=== PATIENT | female | born 1995 | race Caucasian/White ===

== ENCOUNTER 2018-06-16 19:13 | Emergency (ER) | payer OTHER, BC ==
[~2018-06-16] VITALS: Ht 157.5 cm; Wt 120.2 kg
[2018-06-16] MEDS ORDERED: IV NORMAL SALINE 1000ML BAG 1,000 ML IV ONE (19:45)
--- NOTE | 2018-06-16 19:52 | EKG ---
[facility] [address] [place] [address] Test Date: 2018-06-16 Test Time: 19:50:31 Pat Name: BELGICA LIGHT Department: Room: Gender: F Consulting Networking Engineer: NIURKA : 1995 Requested By: CHRIS VARGAS Order Number: [id number] Reading MD: Fede Agrawal MD Measurements Intervals [place] Rate: 84 P: 35 SC: 164 QRS: 44 QRSD: 76 T: 23 QT: 338 QTc: 402 Interpretive Statements SINUS RHYTHM Electronically Signed On 06-21-2018 11:02:45 ZIPPER SETTER by Fede Agrawal MD
--- NOTE | 2018-06-16 19:57 | PHYS DOC ---
Adult General Chief Complaint Chief Complaint: DIZZY/LIGHT HEADED HPI HPI Patient is a 22 year old female who presents with is with her fourth and she has had 3 miscarriages in the past with the last miscarriage being in May. Patient is actually already seen her OB doctor Dr. Putnam and is actually scheduled for a ultrasound tomorrow. Patient states that she noticed the last couple days that she will get dizzy especially when standing up or she moves her head back and forth quickly. Patient denies ever losing consciousness. She states she does have morning sickness but has been keeping down food and is eating and drinking okay. Patient states she last ate at 1530 today and this drinks 3-4 bottles of water. Patient states she had a slight headache earlier but that has gone away. Patient also states that today she wiped after urinating and there was pink on the told paper. Patient denies any pain with urination. Patient denies any vaginal bleeding or abnormal vaginal discharge. She is alert and oriented. Patient has a history of 3 miscarriages, ectopic pregnancies. She has no known drug allergies and she is on progesterone. Her last underwent , 98 heart rate, 100% on room air, 18 respirations. Patient states that 1600 today she became shaky and feeling some dizziness. She walks with steady gait. Review of Systems Review of Systems Constitutional: Denies fever or chills [] Eyes: Denies change in visual acuity, redness, or eye pain [] HENT: Denies nasal congestion or sore throat [] Respiratory: Denies cough or shortness of breath [] Cardiovascular: No additional information not addressed in HPI [] GI: Denies abdominal pain, nausea, vomiting, bloody stools or diarrhea [] : Denies dysuria or hematuria [] Musculoskeletal: Denies back pain or joint pain [] Integument: Denies rash or skin lesions [] Neurologic: Denies headache, focal weakness or sensory changes. Dizziness[] All other systems were reviewed and found to be within normal limits, except as documented in this note. Current Medications Current Medications Current Medications Medications (Trade) Dose Ordered Sig/Dyan Start Time Stop Time Status Last Admin Dose Admin Sodium Chloride 1,000 ml @ 1,000 mls/hr 1X ONCE 06/16/18 19:45 06/16/18 20:44 DC 06/16/18 20:05 1,000 MLS/HR Allergies Allergies Allergies Coded Allergies Type Severity Reaction Last Updated Verified No Known Drug Allergies 06/16/18 No Physical Exam Physical Exam Constitutional: Well developed, well nourished, no acute distress, non-toxic appearance. [] HENT: Normocephalic, atraumatic, bilateral external ears normal, oropharynx moist, no oral exudates, nose normal. [] Eyes: PERRLA, EOMI, conjunctiva normal, no discharge. [] Neck: Normal range of motion, no tenderness, supple, no stridor. [] Cardiovascular:Heart rate regular rhythm, no murmur [] Lungs & Thorax: Bilateral breath sounds clear to auscultation [] Abdomen: Bowel sounds normal, soft, no tenderness, no masses, no pulsatile masses. [] Skin: Warm, dry, no erythema, no rash. [] Back: No tenderness, no CVA tenderness. [] Extremities: No tenderness, no cyanosis, no clubbing, ROM intact, no edema. [] Neurologic: Alert and oriented X 3, normal motor function, normal sensory function, no focal deficits noted. Dizziness when getting up fast or moving head fast side to side. Psychologic: Affect normal, judgement normal, mood normal. [] Current Patient Data Vital Signs Vital Signs Date Time Temp Pulse Resp B/P (MAP) Pulse Ox O2 Delivery O2 Flow Rate FiO2 06/16/18 20:53 79 16 99 06/16/18 19:20 98.2 120/72 (88) Room Air 98.2 Lab Values Laboratory Tests Test 06/16/18 19:35 06/16/18 19:40 06/16/18 19:44 Urine Collection Type Unknown Urine Color Yellow Urine Clarity Clear Urine pH 6.0 Urine Specific [place] 1.025 Urine Protein Negative mg/dL (NEG-TRACE) Urine Glucose (UA) Negative mg/dL (NEG) Urine Ketones (Stick) Negative mg/dL (NEG) Urine Blood Negative (NEG) Urine Nitrite Negative (NEG) Urine Bilirubin Negative (NEG) Urine Urobilinogen Dipstick 0.2 mg/dL (0.2 mg/dL) Urine Leukocyte Esterase Negative (NEG) Urine RBC 0 /HPF (0-2) Urine WBC 1-4 /HPF (0-4) Urine Squamous Epithelial Cells Mod /LPF Urine Bacteria Moderate /HPF (0-FEW) Urine Mucus Marked /LPF Glucose (Fingerstick) 82 mg/dL (70-99) White Blood Count 16.7 x10^3/uL (4.0-11.0) H Red Blood Count 4.25 x10^6/uL (3.50-5.40) Hemoglobin 12.7 g/dL (12.0-15.5) Hematocrit 37.0 % (36.0-47.0) Mean Corpuscular Volume 87 fL (79-100) Mean Corpuscular Hemoglobin 30 pg (25-35) Mean Corpuscular Hemoglobin Concent 34 g/dL (31-37) Red Cell Distribution Width 13.3 % (11.5-14.5) Platelet Count 416 x10^3/uL (140-400) H Neutrophils (%) (Auto) 71 % (31-73) Lymphocytes (%) (Auto) 21 % (24-48) L Monocytes (%) (Auto) 7 % (0-9) Eosinophils (%) (Auto) 1 % (0-3) Basophils (%) (Auto) 1 % (0-3) Neutrophils # (Auto) 11.8 x10^3uL (1.8-7.7) H Lymphocytes # (Auto) 3.5 x10^3/uL (1.0-4.8) Monocytes # (Auto) 1.1 x10^3/uL (0.0-1.1) Eosinophils # (Auto) 0.2 x10^3/uL (0.0-0.7) Basophils # (Auto) 0.2 x10^3/uL (0.0-0.2) Sodium Level 140 mmol/L (136-145) Potassium Level 3.8 mmol/L (3.5-5.1) Chloride Level 102 mmol/L (98-107) Carbon Dioxide Level 26 mmol/L (21-32) Anion Gap 12 (6-14) Blood Urea Nitrogen 12 mg/dL (7-20) Creatinine 0.7 mg/dL (0.6-1.0) Estimated GFR (Cockcroft-Gault) 102.8 Glucose Level 82 mg/dL (70-99) Calcium Level 9.9 mg/dL (8.5-10.1) Laboratory Tests 06/16/18 19:44 Laboratory Tests 06/16/18 19:44 EKG EKG Sinus rhythm and no STEMI Interpretation Time: [address] Nichols Radiology/Procedures Radiology/Procedures [] Course & Med Decision Making Course & Med Decision Making Patient is a 22 year old female who presents with is with her fourth and she has had 3 miscarriages in the past with the last miscarriage being in May. Patient is actually already seen her OB doctor Dr. Putnam and is actually scheduled for a ultrasound tomorrow. Patient states that she noticed the last couple days that she will get dizzy especially when standing up or she moves her head back and forth quickly. Patient denies ever losing consciousness. She states she does have morning sickness but has been keeping down food and is eating and drinking okay. Patient states she last ate at 1530 today and this drinks 3-4 bottles of water. Patient states she had a slight headache earlier but that has gone away. Patient also states that today she wiped after urinating and there was pink on the told paper. Patient denies any pain with urination. Patient denies any vaginal bleeding or abnormal vaginal discharge. She is alert and oriented. Patient has a history of 3 miscarriages, ectopic pregnancies. She has no known drug allergies and she is on progesterone. Her vital signs are 120/72, 98 heart rate, 100% on room air, 18 respirations. Patient states that 1600 today she became shaky and feeling some dizziness. She walks with steady gait. Heart regular no murmur. Lungs are clear to auscultation lobes. PERRLA. When I have the patient turn her head some side- to-side she states she gets dizzy. Patient does not have any visual changes. She is not currently having any abdominal pain, nausea, chest pain, shortness of air. She has no extremity edema. She is neurologically intact. Patient denies any pain at this time. Afebrile. She is stable and in no distress. EKG states sinus rhythm and no STEMI. Orthostatics were layin/61, 98 heart rate, sittin heart rate, 113/56, standin heart rate, 116/72. Glucose is 82. Patient's urine has bacteria and so she will be treated for a urinary tract infection. Patient's urinalysis shows that she is slightly dehydrated. Patient is told that she needs to make sure she drinks more fluid. Patient is told to also rise slowly. Blood work is unremarkable. Patient is given prescription for Macrobid. Patient is stable and in no distress. She is to call her OB doctor tomorrow so she can have a follow-up appointment. [] Miguel A Disclaimer Dragon Disclaimer This electronic medical record was generated, in whole or in part, using a voice recognition dictation system. Departure Departure Impression: Primary Impression: Dizziness, nonspecific Additional Impression: UTI (urinary tract infection) in in first trimester Disposition: HOME, SELF-CARE Condition: STABLE Referrals: UNKNOWN PCP NAME (PCP) Patient Instructions: - Urinary Tract Infection Additional Instructions: Drink more fluids. Rise from a laying or sitting position very slowly. Call your doctor tomorrow for a follow-up appointment. If you lose consciousness or began vomiting and had an intense headache return to the ED. Take Tylenol as needed take medications as prescribed. Scripts Nitrofurantoin Monohyd/M-Cryst (MACROBID 100 MG CAPSULE) 100 Mg Capsule 1 CAP PO BID, #14 CAP Prov: CHRIS VARGAS APRN 06/16/18 Problem Qualifiers CHRIS VARGAS APRN Jun 16, 2018 19:57
[2018-06-16 20:00] LABS: BASO # 0.2 x10^3/uL (0.0-0.2); BASO % 1 % (0-3); EOS # 0.2 x10^3/uL (0.0-0.7); EOS % 1 % (0-3); HEMOGLOBIN 12.7 g/dL (12.0-15.5); LYMPH # 3.5 x10^3/uL (1.0-4.8); LYMPH % 21 % (24-48); MEAN CORPUSCULAR HEMOGLOBIN 30 pg (25-35); MEAN CORPUSCULAR HGB CONC 34 g/dL (31-37); MEAN CORPUSCULAR VOLUME 87 fL (79-100); MONO # 1.1 x10^3/uL (0.0-1.1); MONO % 7 % (0-9); NEUT # 11.8 x10^3uL (1.8-7.7); NEUT % 71 % (31-73); PLATELET COUNT 416 x10^3/uL (140-400); RED BLOOD COUNT 4.25 x10^6/uL (3.50-5.40); RED CELL DISTRIBUTION WIDTH 13.3 % (11.5-14.5); WHITE BLOOD COUNT 16.7 x10^3/uL (4.0-11.0)
[2018-06-16 20:01] LABS: BILIRUBIN,URINE NEGATIVE (NEG); CLARITY,URINE CLEAR; COLOR,URINE YELLOW; NITRITE,URINE NEGATIVE (NEG); PROTEIN,URINE NEGATIVE (NEG-TRACE); UROBILINOGEN,URINE 0.2 mg/dL (0.2 mg/dL)
[2018-06-16 20:08] LABS: BACTERIA,URINE MODERATE /HPF (0-FEW); RBC,URINE 0 /HPF (0-2); SQUAMOUS EPITHELIAL CELL,UR MOD /LPF
[2018-06-16 20:09] LABS: CALCIUM 9.9 mg/dL (8.5-10.1); CREATININE 0.7 mg/dL (0.6-1.0); GFR 102.8; POTASSIUM 3.8 mmol/L (3.5-5.1)
[2018-06-16 20:53] VITALS: BP 118/75
[2018-06-16] MEDS ORDERED: NITR100C62 PO (20:59)
== END 2018-06-16 21:18 | disposition home or self-care (01) ==
LOC: ER 19:13
DX: O23.41 Unspecified infection of urinary tract in pregnancy, first trimester (principal); E86.0 Dehydration; R42 Dizziness and giddiness; Z3A.01 Less than 8 weeks gestation of pregnancy
CPT/HCPCS: 36415; 80048; 81001; 82962; 85025; 87086; 93005; 96360; 99285; J7030

== ENCOUNTER → 2021-12-31 | Outpatient (CLI) | payer OTHER ==
[~2021-12-31] MED LIST: ACET500T68 PO; FAMO-63 PO; HYDR-2761 PO; NITR100C62 PO; PNV1TABL25 PO
== END ==
LOC: LAB 08:33
PROVIDERS: ATTEND Surgery
DX: Z01.812 Encounter for preprocedural laboratory examination (principal); Z20.822 Contact with and (suspected) exposure to COVID-19
CPT/HCPCS: U0003

== ENCOUNTER 2022-01-01 07:44 | Day surgery (SDC) | payer OTHER ==
[~2022-01-01] VITALS: Ht 157.5 cm; Wt 116.5 kg
[~2022-01-01 07:44] MED LIST changes: +BUPIVACAINE-EPI 0.5% 30 ML VIAL KIT. ONE; +DEXAMETHASONE SOD PHOS 4 MG/ML VIAL ONE; +GLYCOPYRROLATE 1 MG/5 ML VIAL. ONE; -HYDR-2761 PO; +HYDROmorphone 2 MG/ML INJ. IVP PRN; +IOHEXOL 300 MG/ML 50 ML VIAL. ONE; +IV RINGERS,LACTATED 1000ML 1,000 ML IV SCH; +LIDOCAINE 1% PF 5 ML VIAL. ONE; +MORPHINE SULFATE 2 MG/ML INJ. IVP PRN; +NEOSTIGMINE METHYLSULFATE 5 MG/5 ML SYRINGE. ONE; +ONDANSETRON PF 4 MG/2 ML VIAL. ONE; +PROCHLORPERAZINE 10 MG/2 ML VIAL. IVP PRN; +PROPOFOL 10 MG/ML (20ML) VIAL. IV ONE; +ROCURONIUM 50 MG/5 ML VIAL. ONE; +SURGICEL HEMOSTAT 4X8 EACH. ONE; +fentaNYL PF VIAL 100 MCG/2 ML VIAL IVP PRN; +fentaNYL PF VIAL 100 MCG/2 ML VIAL ONE
[2022-01-01 08:22] VITALS: BP 102/49
--- NOTE | 2022-01-01 08:54 | PDOC1 ---
History and Physical Date of Admission Date of Admission DATE: 01/01/22 TIME: 08:50 History of Present Illness History of Present Illness The patient is a 26-year-old female who is referred due to symptomatic cholelithiasis. She has had symptoms for nearly 2 years and was able to manage them initially with diet changes. More recently as she has had worsening bouts of abdominal pain. The pain is located in the upper abdomen and is sharp and severe. The pain can last for several hours to even a day or 2. The pain can be improved with medication. She does report associated nausea and vomiting. Her evaluation confirmed gallstones. In addition recent testing was positive and she is estimated to be 6 weeks gestation. Past Medical History Past Medical History Obesity Past Surgical History Past Surgical History Denies Social History Smoke: No Current Medications Current Medications Current Medications Fentanyl Citrate (Fentanyl 2ml Vial) 25 mcg PRN Q5MIN PRN IVP MILD PAIN 1-3; Start 01/01/22 at 06:00; Stop 01/01/22 at 20:00 Fentanyl Citrate (Fentanyl 2ml Vial) 50 mcg PRN Q5MIN PRN IVP MODERATE PAIN 4- 6; Start 01/01/22 at 06:00; Stop 01/01/22 at 20:00 Morphine Sulfate (Morphine Sulfate) 1 mg PRN Q10MIN PRN IVP SEVERE PAIN 7-10; Start 01/01/22 at 06:00; Stop 01/01/22 at 20:00 Ringer's Solution 1,000 ml @ 30 mls/hr Q24H IV Last administered on 01/01/22at 08:28; Start 01/01/22 at 06:00; Stop 01/01/22 at 17:59 Hydromorphone HCl (Dilaudid) 0.5 mg PRN Q10MIN PRN IVP SEVERE PAIN 7-10, 2nd CHOICE; Start 01/01/22 at 06:00; Stop 01/01/22 at 20:00 Prochlorperazine Edisylate (Compazine) 5 mg PACU PRN PRN IVP NAUSEA, MRX1; Start 01/01/22 at 06:00; Stop 01/01/22 at 20:00 Cefazolin Sodium/ Dextrose 50 ml @ 100 mls/hr 1X PREOP PRN IV PRIOR TO PROCEDURE; Start 01/01/22 at 06:00; Stop 01/01/22 at 18:00 Bupivacaine HCl/ Epinephrine Bitart (Sensorcain-Epi 0.5% Kit) 30 ml STK-MED ONCE .ROUTE ; Start 01/01/22 at 07:06; Stop 01/01/22 at 07:06; Status DC Iohexol (Omnipaque 300 Mg/ml) 50 ml STK-MED ONCE .ROUTE ; Start 01/01/22 at 07:06; Stop 01/01/22 at 07:06; Status DC Cellulose (Surgicel Hemostat 4x8) 1 each STK-MED ONCE .ROUTE ; Start 01/01/22 at 07:06; Stop 01/01/22 at 07:06; Status DC Propofol (Diprivan) 200 mg STK-MED ONCE IV ; Start 01/01/22 at 07:19; Stop 01/01/22 at 07:20; Status DC Lidocaine HCl (Xylocaine-Mpf 1% 5ml Vial) 5 ml STK-MED ONCE .ROUTE ; Start 01/01/22 at 07:19; Stop 01/01/22 at 07:20; Status DC Ondansetron HCl (Zofran) 4 mg STK-MED ONCE .ROUTE ; Start 01/01/22 at 07:19; Stop 01/01/22 at 07:20; Status DC Dexamethasone Sodium Phosphate (Decadron) 4 mg STK-MED ONCE .ROUTE ; Start 01/01/22 at 07:19; Stop 01/01/22 at 07:20; Status DC Neostigmine [place] (Neostigmine Methylsulfate) 5 mg STK-MED ONCE .ROUTE ; Start 01/01/22 at 07:20; Stop 01/01/22 at 07:20; Status DC Rocuronium [place] (Zemuron) 50 mg STK-MED ONCE .ROUTE ; Start 01/01/22 at 07:20; Stop 01/01/22 at 07:20; Status DC Fentanyl Citrate (Fentanyl 2ml Vial) 100 mcg STK-MED ONCE .ROUTE ; Start 01/01/22 at 07:20; Stop 01/01/22 at 07:20; Status DC Glycopyrrolate (Robinul) 1 mg STK-MED ONCE .ROUTE ; Start 01/01/22 at 07:21; Stop 01/01/22 at 07:21; Status DC Active Scripts Active Reported Acetaminophen 500 Mg Tablet 500 Mg PO PRN TID PRN Tablet (Pnv Cmb#95/Ferrous Fumarate/Fa) 1 Each Tablet 1 Each PO DAILY Pepcid (Famotidine) 20 Mg Tablet 20 Mg PO DAILY PRN Allergies Allergies: Coded Allergies: No Known Drug Allergies (Unverified , 06/16/18) ROS General: No: Chills, Night Sweats, Fatigue, Malaise, Appetite, Other PSYCHOLOGICAL ROS: No: Anxiety, Behavioral Disorder, Concentration difficultie, Decreased libido, Depression, Disorientation, Hallucinations, Hostility, Irritablity, Memory difficulties, Mood Swings, Obsessive thoughts, Physical abuse, Sexual abuse, Sleep disturbances, Suicidal ideation, Other HEENT: No: Heacaches, Visual Changes, Hearing change, Nasal congestion, Nasal discharge, Oral lesions, Sinus pain, Sore Throat, Epistaxis, Sneezing, Snoring, Tinnitus, Vertigo, Vocal changes, Other ALLERGY AND IMMUNOLOGY: No: Hives, Insect Bite Sensitivity, Itchy/Watery Eyes, Nasal Congestion, Post Nasal Drip, Seasonal Allergies, Other Hematological and Lymphatic: No: Bleeding Problems, Blood Clots, Blood Transfusions, Brusing, Night Sweats, Pallor, Swollen Lymph Nodes, Other ENDOCRINE: No: Breast Changes, Galactorrhea, Hair Pattern Changes, Hot Flashes, Malaise/lethargy, Mood Swings, Palpitations, Polydipsia/polyuria, Skin Changes, Temperature Intolerance, Unexpected Weight Changes, Other Breast: No New/Changing Breast Lumps, No Nipple changes, No Nipple discharge, No Other Respiratory: No: Cough, Hemoptysis, Orthopnea, Pleuritic Pain, Shortness of breath, SOB with excertion, Sputum Changes, Stridor, Tachypnea, Wheezing, Other Cardiovascular: No Chest Pain, No Palpitations, No Orthopnea, No Paroxysmal Noc. Dyspnea, No Edema, No Lt Headedness, No Other Gastrointestinal: Yes Nausea, Yes Abdominal Pain Genitourinary: No Dysuria, No Frequency, No Incontinence, No Hematuria, No Retention, No Discharge, No Urgency, No Pain, No Flank Pain, No Other, No , No , No , No , No , No , No Musculoskeletal: No Gait Disturbance, No Joint Pain, No Joint Stiffness, No Joint Swelling, No Muscle Pain, No Muscular Weakness, No Pain In:, No Swelling In:, No Other Neurological: No Behavorial Changes, No Bowel/Bladder ControlChng, No Confusion, No Dizziness, No Gait Disturbance, No Headaches, No Impaired Coord/balance, No Memory Loss, No Numbness/Tingling, No Seizures, No Speech Problems, No Tremors, No Visual Changes, No Weakness, No Other Skin: No Dry Skin, No Eczema, No Hair Changes, No Lumps, No Mole Changes, No Mottling, No Nail Changes, No Pruritus, No Rash, No Skin Lesion Changes, No Other, No Acne Physical Exam General: Alert, Oriented X3, Cooperative HEENT: Atraumatic Lungs: Clear to auscultation Abdomen: Soft (Obese), No tenderness Rectal Exam: not examined PELVIC: Examination not indicated Extremities: No clubbing, No cyanosis Skin: No rashes, No breakdown Neuro: Normal speech, Strength at 5/5 X4 ext Psych/Mental Status: Mental status NL Vitals Vitals Vital Signs Date Time Temp Pulse Resp B/P (MAP) Pulse Ox O2 Delivery O2 Flow Rate FiO2 01/01/22 08:25 97.8 94 18 102/49 96 Room Air 97.8 VTE Prophylaxis Ordered VTE Prophylaxis Devices: Yes VTE Pharmacological Prophylaxi: No Assessment/Plan Assessment/Plan 26-year-old female with symptomatic cholelithiasis. I discussed surgical treatment with laparoscopic cholecystectomy. The details and risks of surgery were discussed. In addition she is in her first trimester of . I reviewed with her additional risks including loss as a consequence of surgery. An alternative would be to postpone surgery until after delivery. She is reviewed these options and would like to proceed with surgery due to the increasing severity of her symptoms. She understands the potential for risk to the fetus and even potential loss. Justifications for Admission Other Justification CASIMIRO KRISHNAN MD January 01, 2022 08:53
[2022-01-01] MEDS ORDERED: HYDROmorphone 2 MG/ML INJ. ONE (10:04)
--- NOTE | 2022-01-01 10:08 | PDOC4 ---
Operative Note Operative Note Operative Note: Preoperative Diagnosis: Symptomatic cholelithiasis Postoperative Diagnosis: Same Procedure: Laparoscopic cholecystectomy with intraoperative cholangiogram Surgeons: Gabriel Greeting Card Writer: Nidhi Summers MS 3 Anesthesia: Gen. Estimated Blood Loss: 10 mL Specimen: Gallbladder to pathology Drains: None Complications: None Indications: The patient is a 26-year-old female who is referred due to symptomatic cholelithiasis. Surgical treatment was offered by means of a laparoscopic cholecystectomy. The risks of surgery were discussed which include bleeding, infection, bile duct injury, bile leak, pain, the potential for additional surgeries or procedures. The patient understands and would like to proceed. She is approximately 6 weeks and is aware of the risks of surgery including potential loss Description: The patient was taken to the operating room and laid supine on the operating table. General anesthesia was performed. The abdomen was prepped with ChloraPrep and draped in a standard surgical fashion. A small supraumbilical incision was made with a scalpel. The Veress needle was then inserted and a pneumoperitoneum was then created. A 5 mm trocar was then inserted and the laparoscope was introduced. In the upper midabdomen an 11 mm trocar was inserted and in the right upper quadrant two 5 mm trochars were inserted. The gallbladder was retracted cephalad. The cystic duct was dissected free from surrounding tissues. The gallbladder cystic duct junction was clearly identified. A cholangiogram was not performed given that she was . Three clips were placed on the cystic duct and it was divided. The cystic artery was then identified, dissected free, doubly clipped and divided as well. The gallbladder was then mobilized away from the liver with cautery. The gallbladder was then placed in an endoscopic bag and extracted at the superior trocar site. The fascia there was closed with an 0 Vicryl suture and infiltrated with 0.5% marcaine. All blood and irrigation fluid was suctioned and hemostasis was good. The remaining ports were removed and the pneumoperitoneum was relieved. The skin incisions were closed using 4-0 Monocryl suture. Steri-Strips and dressings were then applied. The patient tolerated the procedure well and was sent to the recovery room in stable c ondition. At the end of the case all counts were correct. CASIMIRO KRISHNAN MD January 01, 2022 10:08
[2022-01-01] MEDS ORDERED: HYDR-2761 PO (10:11)
--- NOTE | 2022-01-01 10:13 | DISCH ---
DISCHARGE INSTRUCTIONS Condition on Discharge Condition on Discharge: Stable Activity After Discharge Activity Instructions for Disc: Other, see below (No lifting over 20 lbs, no driving while taking pain meds) Diet after Discharge Diet after Discharge: Regular Wound Incision Care Wound/Incision Care: Other, see below (may remove bandaids tomorrow and shower) Follow-Up Follow up with: FU with Dr Krishnan in 2 weeks in office, call for appointment [phone] CASIMIRO KRISHNAN MD January 01, 2022 10:13
[2022-01-01 10:44] VITALS: BP 129/46
[2022-01-01] MEDS ORDERED: HYDROcodone/APAP 5/325MG 1 TAB TABLET PO ONE (10:45)
== END 2022-01-01 11:15 | disposition home or self-care (01) ==
LOC: SURG 07:44
PROVIDERS: ATTEND Surgery
DX: O99.611 Diseases of the digestive system complicating pregnancy, first trimester (principal); K80.80 Other cholelithiasis without obstruction; E66.9 Obesity, unspecified; F41.9 Anxiety disorder, unspecified; F32.9 Major depressive disorder, single episode, unspecified; K21.9 Gastro-esophageal reflux disease without esophagitis; Z79.899 Other long term (current) drug therapy; Z98.890 Other specified postprocedural states; Z3A.01 Less than 8 weeks gestation of pregnancy
CPT/HCPCS: 47562; 88304; A4209; A4213; A4314; A4364; A4930; A6219; C1887; J0690; J0780; J1170; J2405; J2704; J2710; J3010; J3490; A4452; A4657; J1100; Q9967